=== PATIENT | female | born 1980 | race African-American/Black ===

== ENCOUNTER 2017-01-10 01:04 | Emergency (ER) | payer SELFPAY ==
[~2017-01-10] VITALS: Ht 182.9 cm; Wt 136.1 kg
[2017-01-10 01:10] VITALS: BP 108/77
[2017-01-10] MEDS ORDERED: IBUPROFEN 400 MG TABLET ONE (01:26)
[2017-01-10] MEDS ORDERED: IBUPROFEN 400 MG TABLET PO ONE (01:30)
== END 2017-01-10 02:20 | disposition home or self-care (01) ==
LOC: ER 01:05
DX: S39.012A Strain of muscle, fascia and tendon of lower back, initial encounter (principal); S60.211A Contusion of right wrist, initial encounter; J45.909 Unspecified asthma, uncomplicated; V43.52XA Car driver injured in collision with other type car in traffic accident, initial encounter; Y93.89 Activity, other specified; Y92.410 Unspecified street and highway as the place of occurrence of the external cause; Y99.8 Other external cause status
CPT/HCPCS: 72110; 73080; 73110; 99284; A4606; Z7610